=== PATIENT | male | born 1995 | race Caucasian/White ===

== ENCOUNTER 2019-05-12 23:09 | Emergency (ER) | payer BC ==
--- NOTE | 2019-05-13 01:19 | EDPHYS ---
Physician Documentation [facility] Name: Omari Tatum Age: 23 yrs Sex: Male : 1995 Arrival Date: 05/12/2019 Time: 23:14 Bed 8 Private MD: ED Physician Ry Caceres HPI: 05/12 23:51 This 23 yrs old Male presents to ER via Ambulatory with complaints of Wound kb Infection. 23:51 The patient presents with an abscess of the left inner thigh. Description: draining, kb erythematous, warm. Onset: The symptoms/episode began/occurred 3 day(s) ago. Possible cause(s): unknown. Associated signs and symptoms: Pertinent positives: drainage, erythema, swelling. Modifying factors: the symptoms are alleviated by nothing, the symptoms are aggravated by nothing. Severity of symptoms: At their worst the symptoms were mild, moderate, in the emergency department the symptoms are unchanged. The patient has not experienced similar symptoms in the past. The patient has been recently seen by a physician: the ER physician, out of Town, with similar presenting complaints. Pt reports he had an abscess to left inner thigh for a long time, but it just started draining on Friday so he went to [place] [facility] and had an I\T\D. States he went back this morning for the packing to be removed and there was more redness so they switched abx from Bactrim to Clindamycin. Came tonight because the swelling has spread a little more. 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 - Ebola Screening: : No symptoms or risks identified at this time. - Social history:: Smoking status: Patient/guardian denies using tobacco. ROS: 23:50 Constitutional: Negative for fever, chills, and weight loss, Cardiovascular: Negative kb for chest pain, palpitations, and edema, Respiratory: Negative for shortness of breath, cough, wheezing, and pleuritic chest pain, Abdomen/GI: Negative for abdominal pain, nausea, vomiting, diarrhea, and constipation, Back: Negative for injury and pain, MS/Extremity: Negative for injury and deformity, Neuro: Negative for headache, weakness, numbness, tingling, and seizure. 23:50 Skin: Positive for abscess, cellulitis, of the left inner thigh. Exam: 23:50 Constitutional: This is a well developed, well nourished patient who is awake, alert, kb and in no acute distress. Head/Face: Normocephalic, atraumatic. Chest/axilla: Normal chest wall appearance and motion. Nontender with no deformity. No lesions are appreciated. Cardiovascular: Regular rate and rhythm with a normal S1 and S2. No gallops, murmurs, or rubs. Normal PMI, no JVD. No pulse deficits. Respiratory: Lungs have equal breath sounds bilaterally, clear to auscultation and percussion. No rales, rhonchi or wheezes noted. No increased work of breathing, no retractions or nasal flaring. Abdomen/GI: Soft, non-tender, with normal bowel sounds. No distension or tympany. No guarding or rebound. No evidence of tenderness throughout. Back: No spinal tenderness. No costovertebral tenderness. Full range of motion. MS/ Extremity: Pulses equal, no cyanosis. Neurovascular intact. Full, normal range of motion. Neuro: Awake and alert, GCS 15, oriented to person, place, time, and situation. Cranial nerves II-XII grossly intact. Motor strength 5/5 in all extremities. Sensory grossly intact. Cerebellar exam normal. Normal gait. 23:50 Skin: abscess, that is small, of the left inner thigh, with drainage, with induration, with surrounding cellulitis. Vital Signs: 23:31 BP 124 / 83; Pulse 76; Resp 18; Temp 98.2(O); Pulse Ox 98% on R/A; Weight 104.33 kg; lp1 Height 6 ft. 5 in. (195.58 cm); Pain 310; 05/13 00:45 BP 122 / 78; Pulse 70; Resp 18; Pulse Ox 99% ; ea 05/12 23:31 Body Mass Index 27.27 (104.33 kg, 195.58 cm) lp1 MDM: 05/12 23:21 Patient medically screened. kb 23:50 Data reviewed: vital signs, nurses notes. Data interpreted: Pulse oximetry: on room air kb is 98 %. Interpretation: normal. Counseling: I had a detailed discussion with the patient and/or guardian regarding: the historical points, exam findings, and any diagnostic results supporting the discharge/admit diagnosis, the need for outpatient follow up, a family practitioner, to return to the emergency department if symptoms worsen or persist or if there are any questions or concerns that arise at home. 05/13 00:22 ED course: Request faxed to [facility] for results of culture done on Friday. Awaiting kb report. 01:17 ED course: Gram positive cocci found on culture at [facility]. Pt to continue kb clindamycin that he started today. Administered Medications: No medications were administered Disposition: 05:15 Co-signature as Attending Physician, Ry Caceres MD I agree with the assessment and tw4 plan of care. Disposition: 05/13/19 01:18 Discharged to Home. Impression: Cutaneous abscess of left lower limb. - Condition is Stable. - Discharge Instructions: Skin Abscess, [id number], Incision and Drainage, Care After. - Medication Reconciliation Form, Thank You Letter, Antibiotic Education, Prescription Opioid Use, Work release form form. - Follow up: Emergency Department; When: As needed; Reason: Worsening of condition. Follow up: Private Physician; When: 2 - 3 days; Reason: Recheck today's complaints, Continuance of care, Re-evaluation by your physician. Signatures: Yesenia Costa, MARY-C SLIP COVER CUTTER-Ckb Susie Dorsey RN RN lp1 Jacki Gómez RN Ry Segundo ea, MD MD tw4 Corrections: (The following items were deleted from the chart) 01:27 01:18 05/13/2019 01:18 Discharged to Home. Impression: Cutaneous abscess of left lower ea limb. Condition is Stable. Forms are Medication Reconciliation Form, Thank You Letter, Antibiotic Education, Prescription Opioid Use. Follow up: Emergency Department; When: As needed; Reason: Worsening of condition. Follow up: Private Physician; When: 2 - 3 days; Reason: Recheck today's complaints, Continuance of care, Re-evaluation by your physician. kb
--- NOTE | 2019-05-13 01:19 | ER ---
Nurse's Notes [facility] Name: Omari Tatum Age: 23 yrs Sex: Male : 1995 Arrival Date: 05/12/2019 Time: 23:14 Bed 8 Private MD: Diagnosis: Cutaneous abscess of left lower limb Presentation: 05/12 23:29 Presenting complaint: Patient states: Had a wound drained by [place] [facility] on Friday, lp1 States told to return if swollen and red area increased; taking prescribed antibiotics. Transition of care: patient was not received from another setting of care. Onset of symptoms was May 12, 2019. Risk Assessment: Do you want to hurt yourself or someone else? Patient reports no desire to harm self or others. Initial Sepsis Screen: Does the patient meet any 2 criteria? No. Patient's initial sepsis screen is negative. Does the patient have a suspected source of infection? No. Patient's initial sepsis screen is negative. Care prior to arrival: None. 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 - Ebola Screening: : No symptoms or risks identified at this time. - Social history:: Smoking status: Patient/guardian denies using tobacco. Screenin:26 Abuse screen: Denies threats or abuse. Nutritional screening: No deficits noted. ea Tuberculosis screening: No symptoms or risk factors identified. Fall Risk None identified. Assessment: 23:32 General: Appears in no apparent distress. Behavior is appropriate for age. Pain: lp1 Complains of pain in medial aspect of left thigh. Neuro: Level of Consciousness is awake, alert, obeys commands, Oriented to person, place, time, situation. Respiratory: Airway is patent Respiratory effort is even, unlabored, Respiratory pattern is regular, symmetrical. Derm: Wound noted medial aspect of left thigh. 05/13 00:17 Reassessment: Patient and/or family updated on plan of care and expected duration. Pain ea level reassessed. Patient is alert, oriented x 3, equal unlabored respirations, skin warm/dry/pink. 01:15 Reassessment: Patient and/or family updated on plan of care and expected duration. Pain ea level reassessed. Patient is alert, oriented x 3, equal unlabored respirations, skin warm/dry/pink. 01:26 Reassessment: Patient and/or family updated on plan of care and expected duration. Pain ea level reassessed. Patient is alert, oriented x 3, equal unlabored respirations, skin warm/dry/pink. Discharge instruction given to patient, verbalized the understanding of instruction. Pt left ED ambulatory accompanied by family, pt tolerating well. Vital Signs: 05/12 23:31 BP 124 / 83; Pulse 76; Resp 18; Temp 98.2(O); Pulse Ox 98% on R/A; Weight 104.33 kg; lp1 Height 6 ft. 5 in. (195.58 cm); Pain 3/10; 05/13 00:45 BP 122 / 78; Pulse 70; Resp 18; Pulse Ox 99% ; ea 05/12 23:31 Body Mass Index 27.27 (104.33 kg, 195.58 cm) lp1 ED Course: 05/12 23:14 Patient arrived in ED. jg7 23:21 Yesenia Costa FNP-C is [facility]. kb 23:21 Ry Caceres MD is Attending Physician. kb 23:24 Jacki Gómez, DILLON is Primary Nurse. ea 23:26 Patient has correct armband on for positive identification. Placed in gown. Bed in low ea position. Call light in reach. 23:27 Arm band placed on right wrist. Patient placed in an exam room, on a stretcher, on ea pulse oximetry. 23:31 Triage completed. lp1 23:32 Dressings: Kerlix X 1; medial aspect of left thigh non-adherent dressing x 1 medial jb5 aspect of left thigh. 05/13 01:27 No provider procedures requiring assistance completed. Patient did not have IV access ea during this emergency room visit. Administered Medications: No medications were administered Outcome: 01:18 Discharge ordered by . kb 01:27 Discharged to home ambulatory, with family. ea 01:27 Condition: stable 01:27 Discharge instructions given to patient, Instructed on discharge instructions, follow up and referral plans. 01:27 Patient left the ED. ea Signatures: Yesenia Costa, MARY-C CHIEF COOK-Susie Sotomayor RN RN lp1 Laverne Gillis jb5 Jacki Gómez RN RN Millicent Greene7
[2019-05-13 04:56] VITALS: TEMP 98.2
[2019-05-13 04:58] VITALS: BP 122/78; O2SAT 99
== END 2019-05-13 01:27 | disposition home or self-care (01) ==
LOC: ER 23:09
DX: L02.416 Cutaneous abscess of left lower limb (principal)
CPT/HCPCS: 99283